=== PATIENT | male | born 1965 | race Caucasian/White ===

== ENCOUNTER 2017-03-18 18:16 | Emergency (ER) | payer SELFPAY ==
[2017-03-18] MEDS ORDERED: CLINDAMYCIN PHOSPHATE 150 MG/ML VIAL IM ONE (18:35)
[2017-03-18] MEDS ORDERED: TETANUS,DIPHTHERIA,PERTUSSIS 1 EA SYG IM ONE (18:36)
[2017-03-18] MEDS ORDERED: KETOROLAC TROMETHAMINE INJ 60 MG/2 ML VIAL IM ONE (18:37)
[2017-03-18 18:39] VITALS: BP 166/72; TEMP 98.1
[2017-03-18] MEDS ORDERED: AMOXICILLIN 500 MG CAP PO ONE (18:42)
--- NOTE | 2017-03-18 18:42 | ED.PDOC ---
History of Present Illness - General Chief Complaint: Skin/Abrasion/Tear Stated Complaint: abscess Time Seen by Provider: 03/18/17 18:35 Source: patient, RN notes reviewed, Vital Signs reviewed, family - History of Present Illness Timing/Duration: 24 hours Severity: moderate Improving Factors: nothing Worsening Factors: movement Associated Symptoms: rash Allergies/Adverse Reactions: Allergies Iodine Allergy (Verified 01/07/14 11:06) Home Medications: Ambulatory Orders HYDROcodone 10MG/APAP 325MG [[place] 10325] 1 tab PO Q6H PRN 01/07/14 Ibuprofen 200 mg PO Q8H PRN 01/07/14 Lisinopril 10 mg PO DAILY 01/07/14 Amoxicillin [Amoxil] 1,000 mg PO BID 10 Days #40 cap 03/18/17 Clindamycin HCl 300 mg PO Q6HR 10 Days #40 cap 03/18/17 Ketorolac Tromethamine [Toradol Tabs] 10 mg PO Q6HR PRN 5 Days #20 tab 03/18/17 Review of Systems - Review of Systems Constitutional: Denies: chills, fever, malaise EENTM: Denies: eye pain, ear pain, nose pain, throat pain, mouth pain Respiratory: Denies: cough, orthopnea, short of breath, stridor Cardiology: Denies: chest pain, edema, palpitations, syncope Gastrointestinal/Abdominal: Denies: abdominal pain, constipation, diarrhea, nausea Genitourinary: Denies: discharge, dysuria, frequency, hematuria Musculoskeletal: Denies: joint pain, joint swelling, muscle pain, muscle stiffness Skin: States: change in color. Denies: dryness, lesions Neurological: Denies: anxiety, depressed, headache, numbness, paresthesia, pre- existing deficit Endocrine: Denies: excessive sweating, flushing, increased hunger, increased thirst, increased urine Hematologic/Lymphatic: Denies: anemia, blood clots, easy bleeding, easy bruising Past Medical History (General) - Patient Medical History Hx Seizures: No Hx Stroke: No Hx Asthma: No Hx of COPD: No Hx Cardiac Disorders: No Hx Congestive Heart Failure: No Hx Pacemaker: No Hx Hypertension: Yes Hx Diabetes: No Hx MRSA: No - Vaccination History Hx Influenza Vaccination: No Hx Pneumococcal Vaccination: No - Social History Hx Tobacco Use: Yes Hx Alcohol Use: Yes Hx Substance Use: No Hx Physical Abuse: No Hx Emotional Abuse: No Family Medical History - Family History Mother Family History: Unknown Physical Exam - Physical Exam General Appearance: Alert, Anxious, Well Hydrated, Well Nourished Ears, Nose, Throat: hearing grossly normal, normal ENT inspection, normal pharynx Neck: non-tender, full range of motion, supple Respiratory: chest non-tender, lungs clear, normal breath sounds, no respiratory distress, no accessory muscle use Cardiovascular/Chest: normal peripheral pulses, regular rate, rhythm Peripheral Pulses: radial,right: 2+, radial,left: 2+ Gastrointestinal/Abdominal: normal bowel sounds, non tender, soft Back Exam: normal inspection Extremity: normal range of motion, other - cellulitis to the right thumb, drainage to the lateral aspects of nail, soft to pad of thumb, normal rom of thumb, no crepitus, no pain to flexor tendon, no sausage digit 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 adrien return if acute worsening or problem. pt non toxic, tolerated po. given dirty wound with dirt amount area and work exposure updated tetanus and double covered anaerobes. Departure - Departure Clinical Impression: Paronychia of finger of right hand, Cellulitis, finger Time of Disposition: 18:40 Disposition: Discharge to Home or Self Care Condition: Good Departure Forms: ED Discharge - Pt. Copy, Patient Portal Self Enrollment Instructions: DI for Abrasion, Cellulitis, Paronychia Diet: resume usual diet Activity: increase activity as tolerated Referrals: MANUEL ANDERSEN [Primary Care Provider] - 1-2 Weeks Prescriptions: Clindamycin HCl 300 mg PO Q6HR 10 Days #40 cap Ketorolac Tromethamine [Toradol Tabs] 10 mg PO Q6HR PRN 5 Days #20 tab PRN Reason: Pain Amoxicillin [Amoxil] 1,000 mg PO BID 10 Days #40 cap Home Medications: Ambulatory Orders HYDROcodone 10MG/APAP 325MG [[place] 10/325] 1 tab PO Q6H PRN 01/07/14 Ibuprofen 200 mg PO Q8H PRN 01/07/14 Lisinopril 10 mg PO DAILY 01/07/14 Amoxicillin [Amoxil] 1,000 mg PO BID 10 Days #40 cap 03/18/17 Clindamycin HCl 300 mg PO Q6HR 10 Days #40 cap 03/18/17 Ketorolac Tromethamine [Toradol Tabs] 10 mg PO Q6HR PRN 5 Days #20 tab 03/18/17
[2017-03-18 19:23] VITALS: O2SAT 99
== END 2017-03-18 19:24 | disposition home or self-care (01) ==
LOC: ER 18:16
DX: L03.011 Cellulitis of right finger (principal); Z23 Encounter for immunization; Z88.8 Allergy status to other drugs, medicaments and biological substances; Z87.891 Personal history of nicotine dependence
CPT/HCPCS: 90471; 90715; J1885; J3490

== ENCOUNTER 2017-04-19 13:19 | Emergency (ER) | payer SELFPAY ==
[2017-04-19 13:42] VITALS: TEMP 98.2; O2SAT 97
[2017-04-19] MEDS ORDERED: HYDROcodone 10MG/APAP 325MG 1 EA TAB PO ONE (14:57)
[2017-04-19 15:11] VITALS: BP 115/82
--- NOTE | 2017-04-19 15:51 | ED.PDOC ---
History of Present Illness - General Chief Complaint: Trauma Stated Complaint: left groin pain/skin rash Time Seen by Provider: 04/19/17 15:48 Source: patient Exam Limitations: no limitations - History of Present Illness Initial Comments: Doroteo Esposito 51 y/o male see in er with burning pain left side hip and skin rash the last 2 days no fever ,no chills Timing/Duration: other - 2 days Severity: moderate Location: extremities - let hip area Improving Factors: nothing Worsening Factors: nothing Associated Symptoms: rash Allergies/Adverse Reactions: Allergies Iodine Allergy (Verified 01/07/14 11:06) Home Medications: Ambulatory Orders HYDROcodone 10MG/APAP 325MG [[place] 325] 1 tab PO Q6H PRN 01/07/14 Ibuprofen 200 mg PO Q8H PRN 01/07/14 Lisinopril 10 mg PO DAILY 01/07/14 Amoxicillin [Amoxil] 1,000 mg PO BID 10 Days #40 cap 03/18/17 Clindamycin HCl 300 mg PO Q6HR 10 Days #40 cap 03/18/17 Ketorolac Tromethamine [Toradol Tabs] 10 mg PO Q6HR PRN 5 Days #20 tab 03/18/17 Acetamin W/Cod #3 Tab [Tylenol w/CODEINE #3] 1 ea PO Q6HRS PRN #20 tab 04/19/17 Gabapentin 300 mg PO BEDTIME #20 cap 04/19/17 Valacyclovir HCl 1 gm PO TID #21 tab 04/19/17 predniSONE 20 mg PO BID #20 tab 04/19/17 Review of Systems - Review of Systems Constitutional: States: no symptoms reported EENTM: States: no symptoms reported Respiratory: States: no symptoms reported Cardiology: States: no symptoms reported Gastrointestinal/Abdominal: States: no symptoms reported Genitourinary: States: no symptoms reported Skin: States: see HPI All other Systems: Reviewed and Negative, No Change from Baseline Past Medical History (General) - Patient Medical History Hx Seizures: No Hx Stroke: No Hx Asthma: No Hx of COPD: No Hx Cardiac Disorders: No Hx Congestive Heart Failure: No Hx Pacemaker: No Hx Hypertension: Yes Hx Diabetes: No Hx MRSA: No Surgical History: no surgical history - Vaccination History Hx Influenza Vaccination: No Hx Pneumococcal Vaccination: No - Social History Hx Tobacco Use: Yes Hx Alcohol Use: Yes Hx Substance Use: No Hx Physical Abuse: No Hx Emotional Abuse: No Family Medical History - Family History Mother Family History: Unknown Hx Family Cancer: Yes - dad-prostate;mom-lungs Physical Exam - Physical Exam General Appearance: Alert, Comfortable, Frail Eyes, Ears, Nose, Throat Exam: PERRL/EOMI, normal ENT inspection, pharynx normal Neck: non-tender, supple Cardiovascular/Chest: normal peripheral pulses, regular rate, rhythm, no murmur Respiratory: chest non-tender, lungs clear Gastrointestinal/Abdominal: non tender, soft Extremity: non-tender, no calf tenderness Neurologic: alert, oriented x 3 Skin Exam: warm/dry, normal color Skin Problem Location: other - upper left hip area Skin Character: erythema Lymphatic: no adenopathy Progress - Progress Progress: 04/19/17 15:53 Last Vital Signs Temp 98.2 F 04/19/17 13:20 Pulse 100 H 04/19/17 15:00 Resp 20 04/19/17 15:00 BP 115/82 04/19/17 15:00 Pulse Ox 97 04/19/17 15:00 Departure - Departure Clinical Impression: Shingles rash Qualifiers: Herpes zoster complications: without complications Qualified Code(s): B02.9 - Zoster without complications Time of Disposition: 15:54 Disposition: Discharge to Home or Self Care Condition: Fair Departure Forms: ED Discharge - Pt. Copy, Patient Portal Self Enrollment Instructions: DI for Shingles, Shingles, Shingles (Herpes Zoster) (Alternative Therapy), Shingles (Zoster) Vaccine Referrals: MANUEL ANDERSEN [Primary Care Provider] - 1-2 Weeks Prescriptions: Acetamin W/Cod #3 Tab [Tylenol w/CODEINE #3] 1 ea PO Q6HRS PRN #20 tab PRN Reason: Pain Gabapentin 300 mg PO BEDTIME #20 cap predniSONE 20 mg PO BID #20 tab Valacyclovir HCl 1 gm PO TID #21 tab Home Medications: Ambulatory Orders HYDROcodone 10MG/APAP 325MG [[place] 10/325] 1 tab PO Q6H PRN 01/07/14 Ibuprofen 200 mg PO Q8H PRN 01/07/14 Lisinopril 10 mg PO DAILY 01/07/14 Amoxicillin [Amoxil] 1,000 mg PO BID 10 Days #40 cap 03/18/17 Clindamycin HCl 300 mg PO Q6HR 10 Days #40 cap 03/18/17 Ketorolac Tromethamine [Toradol Tabs] 10 mg PO Q6HR PRN 5 Days #20 tab 03/18/17 Acetamin W/Cod #3 Tab [Tylenol w/CODEINE #3] 1 ea PO Q6HRS PRN #20 tab 04/19/17 Gabapentin 300 mg PO BEDTIME #20 cap 04/19/17 Valacyclovir HCl 1 gm PO TID #21 tab 04/19/17 predniSONE 20 mg PO BID #20 tab 04/19/17 Additional Instructions: Follow up with primary Md 04/26/2017 call for your appointment
== END 2017-04-19 16:10 | disposition home or self-care (01) ==
LOC: ER 13:19
DX: B02.9 Zoster without complications (principal); I10 Essential (primary) hypertension; Z87.891 Personal history of nicotine dependence

== ENCOUNTER 2019-05-29 17:57 | Emergency (ER) | payer SELFPAY ==
[2019-05-29] MEDS ORDERED: SULFA/TRIMETH 800/160 (DS) TAB 1 EA TAB PO ONE (18:18)
[2019-05-29] MEDS ORDERED: LIDOCAINE 1% 10 ML VIAL INJ ONE (18:18)
--- NOTE | 2019-05-29 18:22 | ED.PDOC ---
History of Present Illness - General Time Seen by Provider: 05/29/19 17:58 Source: patient, RN notes reviewed, Vital Signs reviewed, family Exam Limitations: no limitations - History of Present Illness Initial Comments: Patient presents to ED for 1 month h/o pain to right middle finger nail bed area. States it has been red and swollen and occasionally drains yellow colored pus. 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 Denies any trauma or injury to the areea. Denies fever, chills, NVD. Has had similar in the past that was drained and put on antibiotics which resolved the problem. Allergies/Adverse Reactions: Allergies Iodine Allergy (Verified 01/07/14 11:06) Home Medications: Ambulatory Orders RX: HYDROcodone 10MG/APAP 325MG [[place] 325] 1 tab PO Q6H PRN 01/07/14 RX: Ibuprofen 200 mg PO Q8H PRN 01/07/14 RX: Lisinopril 10 mg PO DAILY 01/07/14 Ketorolac Tromethamine [Toradol Tabs] 10 mg PO Q6HR PRN 5 Days #20 tab 03/18/17 RX: Amoxicillin [Amoxil] 1,000 mg PO BID 10 Days #40 cap 03/18/17 RX: Clindamycin HCl 300 mg PO Q6HR 10 Days #40 cap 03/18/17 Acetamin W/Cod #3 Tab [Tylenol w/CODEINE #3] 1 ea PO Q6HRS PRN #20 tab 04/19/17 RX: Gabapentin 300 mg PO BEDTIME #20 cap 04/19/17 RX: Valacyclovir HCl 1 gm PO TID #21 tab 04/19/17 RX: predniSONE 20 mg PO BID #20 tab 04/19/17 Acetaminophen W/ Codeine [Tylenol W/ CODEINE #3] 1 tablet PO Q6H PRN #20 05/29/19 Cephalexin Monohydrate [Keflex] 500 mg PO QID 10 Days #40 cap 05/29/19 Sulfamethoxazole-Trimethoprim [Bactrim Ds 800-160 mg] 1 tab PO BID 10 Days #20 tab 05/29/19 Review of Systems - Review of Systems Constitutional: Denies: chills, fever, weakness EENTM: Denies: ear pain, throat pain Respiratory: Denies: cough, short of breath, wheezing Cardiology: Denies: chest pain, palpitations, syncope Gastrointestinal/Abdominal: Denies: abdominal pain, nausea, vomiting Musculoskeletal: Denies: back pain, neck pain Skin: States: see HPI Endocrine: States: no symptoms reported All other Systems: Reviewed and Negative Past Medical History (General) - Patient Medical History Hx Seizures: No Hx Stroke: No Hx Asthma: No Hx of COPD: No Hx Cardiac Disorders: No Hx Congestive Heart Failure: No Hx Pacemaker: No Hx Hypertension: Yes Hx Diabetes: No Hx MRSA: No - Vaccination History Hx Influenza Vaccination: No Hx Pneumococcal Vaccination: No - Social History Hx Tobacco Use: Yes Hx Alcohol Use: Yes Hx Substance Use: No Hx Physical Abuse: No Hx Emotional Abuse: No Family Medical History - Family History Mother Family History: Unknown Hx Family Cancer: Yes - dad-prostate;mom-lungs Physical Exam - Physical Exam General Appearance: Alert, Comfortable, No apparent distress Neck: non-tender, full range of motion, supple Cardiovascular/Respiratory: regular rate, rhythm, normal peripheral pulses, normal breath sounds, no respiratory distress Abdominal Exam: non-tender, other - soft Back Exam: normal inspection, no vertebral tenderness Neuro/Tendon: normal sensation, normal motor functions Mental Status: alert Skin Exam: normal color, warm/dry Comments: Right 3rd digit has erythema and edema at base of nail. There is large amount of black substance under the distal nail. No bony tenderness. No tenderness, erythema or edema to finger pad to suggest peñaon Progress - Progress Progress: 05/29/19 18:58 Pt presents with paronychia to right middle finger. All nails are thickened, long with dark colored substance under distal nail. 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 I have performed digital block and I&D of paronychia with small amount of fluid expressed. I have discussed the importance of keeping wound clean and dry and will soak digits daily to clean. I have asked him to f/u with PCP or hand surgeon within 3 days for continued evaluation. SRP given. Procedures - Incision and Drainage #1 Site: Right 3rd finger paronychia Procedure and Prep: betadine prep, irrigated, pus drained Blade Size: 11 Procedure Comments: Digital block performed with good anesthesia to digit. Wound cleaned and #11 blade used to raise nail fold with small amount of purulent drainage. Pt tolerated well. Wound care instructions given. Departure - Departure Clinical Impression: Paronychia Time of Disposition: 18:54 Disposition: Discharge to Home or Self Care Condition: Good Departure Forms: ED Discharge - Pt. Copy, Patient Portal Self Enrollment Instructions: Paronychia (DC) Diet: resume usual diet Activity: increase activity as tolerated Referrals: MANUEL ANDERSEN [Primary Care Provider] - 1-2 Days Prescriptions: Acetaminophen W/ Codeine [Tylenol W/ CODEINE #3] 1 tablet PO Q6H PRN #20 PRN Reason: Pain Cephalexin Monohydrate [Keflex] 500 mg PO QID 10 Days #40 cap Sulfamethoxazole-Trimethoprim [Bactrim Ds 800-160 mg] 1 tab PO BID 10 Days #20 tab Home Medications: Ambulatory Orders RX: HYDROcodone 10MG/APAP 325MG [[place] 10] 1 tab PO Q6H PRN 01/07/14 RX: Ibuprofen 200 mg PO Q8H PRN 01/07/14 RX: Lisinopril 10 mg PO DAILY 01/07/14 Ketorolac Tromethamine [Toradol Tabs] 10 mg PO Q6HR PRN 5 Days #20 tab 03/18/17 RX: Amoxicillin [Amoxil] 1,000 mg PO BID 10 Days #40 cap 03/18/17 RX: Clindamycin HCl 300 mg PO Q6HR 10 Days #40 cap 03/18/17 Acetamin W/Cod #3 Tab [Tylenol w/CODEINE #3] 1 ea PO Q6HRS PRN #20 tab 04/19/17 RX: Gabapentin 300 mg PO BEDTIME #20 cap 04/19/17 RX: Valacyclovir HCl 1 gm PO TID #21 tab 04/19/17 RX: predniSONE 20 mg PO BID #20 tab 04/19/17 Acetaminophen W/ Codeine [Tylenol W/ CODEINE #3] 1 tablet PO Q6H PRN #20 05/29/19 Cephalexin Monohydrate [Keflex] 500 mg PO QID 10 Days #40 cap 05/29/19 Sulfamethoxazole-Trimethoprim [Bactrim Ds 800-160 mg] 1 tab PO BID 10 Days #20 tab 05/29/19 Additional Instructions: Soak fingers in warm water and keep clean. You will need to follow up with PCP in 1-2 days for recheck.
[2019-05-29 18:26] VITALS: TEMP 97.2
[2019-05-29 19:08] VITALS: BP 166/116; O2SAT 95
== END 2019-05-29 19:09 | disposition home or self-care (01) ==
LOC: ER 17:57
DX: L03.011 Cellulitis of right finger (principal); I10 Essential (primary) hypertension; Z87.891 Personal history of nicotine dependence; Z91.041 Radiographic dye allergy status; Z79.899 Other long term (current) drug therapy